=== PATIENT | female | born 2000 | race Caucasian/White ===

== ENCOUNTER 2019-10-19 07:22 | Emergency (ER) | payer BC ==
[~2019-10-19] VITALS: Ht 165.1 cm; Wt 60.0 kg
[2019-10-19] MEDS ORDERED: PANTOPRAZOLE SODIUM 40 MG/VIAL IV STA (08:31)
[2019-10-19] MEDS ORDERED: ONDANSETRON HCL 4MG/2ML INJ IV STA ×2 (08:31→10:48)
[2019-10-19] MEDS ORDERED: KETOROLAC 30MG/ML VIAL IV STA (08:31)
[2019-10-19] MEDS ORDERED: SODIUM CHLORIDE 0.9% 1,000 ML IV ONE (08:31)
[2019-10-19 09:18] LABS: BASOPHILS % 1.3 % (0.0-2.0); HEMATOCRIT. 44.8 % (36.0-48.0); HEMOGLOBIN. 14.4 g/dL (12.0-16.0); LYMPHOCYTES % 44.7 % (20.0-50.0); MEAN CORPUSCULAR HEMOGLOBIN 26.8 pg (28.0-32.0); MEAN CORPUSCULAR VOLUME 83.1 fL (81.0-99.0); MEAN PLATELET VOLUME 7.8 fl (7.4-10.4); MONOCYTES % 10.4 % (2.0-8.0); NEUTROPHILS % 42.6 % (40.0-76.0); PLATELET 234 x1000/uL (130-400); RED BLOOD CELL COUNT 5.39 mill/uL (4.2-5.4); RED CELL DISTRIBUTION WIDTH 16.2 % (11.6-14.6)
[2019-10-19 09:22] LABS: CHLORIDE 108 mEq/L (98-107)
[2019-10-19 09:23] LABS: INR 0.9; PROTHROMBIN TIME 9.1 sec (9.6-11.0)
[2019-10-19] MEDS ORDERED: MORPHINE SULFATE 4 MG/ML CPJ (NOT FOR IM USE) IV STA (10:48)
[2019-10-19 10:56] VITALS: BP 91/62
== END 2019-10-19 11:28 | disposition home or self-care (01) ==
LOC: ER 07:22
DX: K80.50 Calculus of bile duct without cholangitis or cholecystitis without obstruction (principal)
CPT/HCPCS: 36415; 76705; 80053; 81025; 83690; 85025; 85610; 96361; 96374; 96375; 96376; 99284; C9113; J1885; J2270; J2405; J7030